=== PATIENT | female | born 1990 | race Caucasian/White ===

== ENCOUNTER 2016-04-12 11:38 | Emergency (ER) | payer MEDICAID ==
[~2016-04-12] VITALS: Ht 162.6 cm; Wt 80.0 kg
[2016-04-12 12:42] VITALS: BP 113/70
== END 2016-04-12 15:25 | disposition home or self-care (01) ==
LOC: ER 12:42
DX: H61.21 Impacted cerumen, right ear (principal); F17.200 Nicotine dependence, unspecified, uncomplicated
CPT/HCPCS: 69209; 69210; 99282